=== PATIENT | male | born 1975 | race Two or more races ===

== ENCOUNTER 2019-01-14 11:03 | Emergency (ER) | payer MEDICAID ==
[~2019-01-14] VITALS: Ht 188 cm; Wt 120.0 kg
[2019-01-14 11:45] LABS: BASOPHILS % 0.9 % (0.0-2.0); EOSINOPHILS % 0.8 % (0.0-5.0); HEMATOCRIT. 44.2 % (42.0-52.0); HEMOGLOBIN. 14.9 g/dL (14.0-18.0); LYMPHOCYTES % 21.4 % (20.0-50.0); MEAN CORPUSCULAR VOLUME 83.1 fL (80.0-94.0); MEAN PLATELET VOLUME 8.6 fl (7.4-10.4); MONOCYTES % 8.5 % (2.0-8.0); NEUTROPHILS % 68.4 % (40.0-76.0); PLATELET 254 x1000/uL (130-400); RED BLOOD CELL COUNT 5.32 mill/uL (4.7-6.1); RED CELL DISTRIBUTION WIDTH 14.7 % (11.6-14.6)
[2019-01-14 11:56] LABS: CHLORIDE 105 mEq/L (98-107)
[2019-01-14 12:01] LABS: ETHANOL BLOOD 145 mg/dL
[2019-01-14] MEDS ORDERED: POTASSIUM CHLORIDE 20MEQ TABLET SR PO ONE (13:00)
[2019-01-14 14:20] VITALS: BP 129/86
== END 2019-01-14 14:26 | disposition home or self-care (01) ==
LOC: ER 11:03
DX: S40.021A Contusion of right upper arm, initial encounter (principal); E87.6 Hypokalemia; F16.120 Hallucinogen abuse with intoxication, uncomplicated; I10 Essential (primary) hypertension; W18.39XA Other fall on same level, initial encounter; Y93.89 Activity, other specified; Y92.89 Other specified places as the place of occurrence of the external cause; Y99.8 Other external cause status
CPT/HCPCS: 36415; 71045; 80307; 80320; 80329; 82140; 84443; 93005; 99284; G0480

== ENCOUNTER 2019-01-14 18:27 | Emergency (ER) | payer MEDICAID ==
[~2019-01-14] VITALS: Ht 182.9 cm; Wt 120.0 kg
[2019-01-14] MEDS ORDERED: LORAZEPAM 2MG/ML CPJ IV STA (19:18)
[2019-01-14] MEDS ORDERED: DIPHENHYDRAMINE 50MG/ML VIAL IM STA (19:18)
[2019-01-14] MEDS ORDERED: HALOPERIDOL LACTATE 5MG/ML VIAL IM STA (19:18)
[2019-01-14 20:20] LABS: BASOPHILS % 0.8 % (0.0-2.0); EOSINOPHILS % 0.5 % (0.0-5.0); HEMATOCRIT. 44.2 % (42.0-52.0); HEMOGLOBIN. 14.9 g/dL (14.0-18.0); MEAN CORPUSCULAR HEMOGLOBIN 27.8 pg (28.0-32.0); MEAN CORPUSCULAR VOLUME 82.5 fL (80.0-94.0); MEAN PLATELET VOLUME 9.2 fl (7.4-10.4); MONOCYTES % 8.4 % (2.0-8.0); NEUTROPHILS % 73.3 % (40.0-76.0); PLATELET 275 x1000/uL (130-400); RED BLOOD CELL COUNT 5.35 mill/uL (4.7-6.1); RED CELL DISTRIBUTION WIDTH 14.8 % (11.6-14.6)
[2019-01-14 20:21] LABS: CLARITY URINE CLEAR (CLEAR); COLOR URINE YELLOW (YELLOW); KETONES URINE TRACE (NEGATIVE); LEUKOCYTE ESTERASE URINE NEGATIVE (NEGATIVE); NITRITE URINE NEGATIVE (NEGATIVE); OCCULT BLOOD URINE NEGATIVE (NEGATIVE); PROTEIN URINE NEGATIVE (NEGATIVE); SPECIFIC GRAVITY URINE 1.016 (1.005-1.030)
[2019-01-14 20:25] LABS: CHLORIDE 109 mEq/L (98-107)
[2019-01-14 20:28] LABS: ETHANOL BLOOD < 10 mg/dL
[2019-01-14 20:30] LABS: *AMPHETAMINES SCREEN URINE PRESUMTIVE POSITIVE (NEGATIVE); *BARBITURATES SCREEN URINE NEGATIVE (NEGATIVE); *BENZODIAZEPINES SCREEN URINE PRESUMTIVE POSITIVE (NEGATIVE); *COCAINE SCREEN URINE NEGATIVE (NEGATIVE); METHADONE URINE SCREEN NEGATIVE (NEGATIVE)
[2019-01-14 20:31] LABS: CANNABINOID URINE SCREEN NEGATIVE (NEGATIVE); OPIATES URINE SCREEN NEGATIVE (NEGATIVE); PHENCYCLIDINE URINE SCREEN PRESUMTIVE POSITIVE (NEGATIVE)
[2019-01-15 06:36] VITALS: BP 145/136
== END 2019-01-15 06:38 | disposition home or self-care (01) ==
LOC: ER 18:27
DX: F16.129 Hallucinogen abuse with intoxication, unspecified (principal); F15.129 Other stimulant abuse with intoxication, unspecified; I10 Essential (primary) hypertension; Z78.1 Physical restraint status
CPT/HCPCS: 36415; 80053; 80305; 80307; 80320; 80329; 81003; 85025; 96372; 96374; 99284; J1200; J1630; J2060; Z7610; A4315; G0480